=== PATIENT | male | born 1950 | race Asian ===

== ENCOUNTER 2017-11-24 05:59 | Day surgery (SDC) | payer MEDICARE, OTHER ==
[2017-11-24 07:17] LABS: ABNORMAL IP MESSAGE 1; HEMATOCRIT 33.3 % (42.0-52.0); MEAN CORPUSCULAR HEMOGLOBIN 30.2 pg (29.0-33.0); MEAN CORPUSCULAR VOLUME 91.5 fl (82.0-101.0); POSITIVE DIFF @See below; RED BLOOD COUNT 3.64 10^6/ul (4.70-6.10); RED CELL DISTRIBUTION WIDTH 16.1 % (11.5-14.5)
[2017-11-24 07:17] LABS: WHITE BLOOD COUNT 8.4 10^3/ul (4.8-10.8)
[2017-11-24] MEDS: ASPIRIN (EC) 81 MG TAB PO (07:17)
[2017-11-24] MEDS: CLOPIDOGREL 75 MG TAB PO (07:18)
[2017-11-24 07:22] LABS: HOLD TRANSMISSIONS 1; PLATELET COUNT 39 10^3/UL (140-415)
[2017-11-24 07:23] LABS: ADD MAN DIFF? YES
[2017-11-24] MEDS ORDERED: LIDOCAINE 1% (MPF) 30 ML INJ (07:29)
[2017-11-24] MEDS ORDERED: GELATIN SIZE 100 SPONGE (07:29)
[2017-11-24] MEDS ORDERED: THROMBIN 5000 UNIT VIAL (07:29)
[2017-11-24] MEDS ORDERED: HEPARIN 1000 UNITS/ML 10 ML INJ (07:30)
[2017-11-24] MEDS: LIDOCAINE 1% (MPF) 30 ML INJ INJ (07:45)
[2017-11-24] MEDS: HEPARIN 1000 UNITS/ML 10 ML INJ IRR (07:45)
[2017-11-24 07:55] LABS: INR 0.97
[2017-11-24 07:56] LABS: PARTIAL THROMBOPLASTIN TIME 27.7 Sec (25.0-35.0)
[2017-11-24 08:55] LABS: ALANINE AMINOTRANSFERASE 35 IU/L (13-69); ALBUMIN 3.9 g/dl (3.3-4.9); ALBUMIN/GLOBULIN RATIO 1.02; ALKALINE PHOSPHATASE 85 IU/L (42-121); ANION GAP 17 (8-16); ASPARTATE AMINO TRANSFERASE 26 IU/L (15-46); BILIRUBIN,INDIRECT 0.5 mg/dl (0-1.1); BILIRUBIN,TOTAL 0.5 mg/dl (0.2-1.3); CARBON DIOXIDE 29 mmol/L (21-31); CHLORIDE 100 mmol/L (97-110); GLUCOSE 101 mg/dl (70-220); TOTAL PROTEIN 7.7 g/dl (6.1-8.1)
[2017-11-24 08:56] LABS: BLOOD UREA NITROGEN 37 mg/dl (7-20); CALCIUM 9.3 mg/dl (8.4-10.2); CREATININE 4.19 mg/dl (0.61-1.24); POTASSIUM 4.8 mmol/L (3.5-5.1); SODIUM 141 mmol/L (135-144)
[2017-11-24] MEDS ORDERED: FENTAnyl 50 MCG/ML VIAL (09:09)
[2017-11-24] MEDS ORDERED: MIDAZOLAM 1 MG/ML 2 ML INJ (09:09)
[2017-11-24] MEDS ORDERED: CEFAZOLIN 1 GM INJ (09:52)
[2017-11-24] MEDS ORDERED: FENTAnyl 50 MCG/ML VIAL IV ×2 (10:00)
[2017-11-24] MEDS ORDERED: ONDANSETRON 4 MG INJ IV (10:00)
[2017-11-24] MEDS ORDERED: HYDROmorphONE (0.2 MG/ML) 10ML SYG IV ×2 (10:00)
[2017-11-24] MEDS ORDERED: DIPHENHYDRAMINE 50 MG INJ IV (10:00)
[2017-11-24] MEDS ORDERED: PHENYLephrine (100 MCG/ML) 5ML SYG (10:09)
[2017-11-24] MEDS: THROMBIN 5000 UNIT VIAL TOP (10:11)
[2017-11-24] MEDS: GELATIN 2 SQ INCH SPONGE TOP (10:12)
== END 2017-11-24 11:55 | disposition home or self-care (01) ==
LOC: SDS 05:59
DX: I12.0 Hypertensive chronic kidney disease with stage 5 chronic kidney disease or end stage renal disease (principal); N18.6 End stage renal disease; I25.2 Old myocardial infarction; E11.9 Type 2 diabetes mellitus without complications; E78.5 Hyperlipidemia, unspecified; I50.9 Heart failure, unspecified; Z79.82 Long term (current) use of aspirin
CPT/HCPCS: 36821; 71045; 80053; 82962; 85025; 85610; 85730; 93005